=== PATIENT | female | born 2000 ===

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

== ENCOUNTER → 2019-02-05 | Outpatient (REF) | payer OTHER ==
[~2019-02-05] MED LIST changes: +LEVO-85 PO; +LOR5/325 PO
[2019-02-05 14:04] LABS: PLATELET COUNT, AUTOMATED 295 K/uL (150-450)
== END ==
LOC: ZZSTITCHES 13:55
PROVIDERS: ATTEND Physician Assistant
DX: R11.2 Nausea with vomiting, unspecified (principal); R10.9 Unspecified abdominal pain
CPT/HCPCS: 82040; 82247; 82310; 82374; 82435; 82565; 82947; 83690; 84075; 84132; 84155; 84295; 84450; 84460; 84520; 85025

== ENCOUNTER 2019-02-07 01:57 | Emergency (ER) | payer OTHER ==
[~2019-02-07 01:57] MED LIST changes: -LEVO-85 PO; -LOR5/325 PO
--- NOTE | 2019-02-07 02:12 | ER Report ---
History and Physical Time Seen By MD: 02:07 Hx. of Stated Complaint: PT HAS N/V/D FOR 1 WEEK. HPI/ROS CHIEF COMPLAINT: Nausea, vomiting and diarrhea with abdominal pain HISTORY OF PRESENT ILLNESS: This is a 18-year-old female. She has been having abdominal pain with associated diarrhea and nausea with vomiting for about a week now. Had been to the urgent care twice in the last several days. Laboratory evaluation shows that she was becoming a little dehydrated but otherwise labs were unremarkable. She was given some IV fluids and also was prescribed some Zofran, promethazine, dicyclomine to try and help with symptoms but these have been ineffective. Last visit with urgent care was 2 days ago. Since that time she has continued to have the diarrhea as well as the nausea and vomiting. She does not know of any sick contacts. She is a student at the [employer], in [facility]. 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 Diarrhea has been mainly watery, at least every few hours. She has been unable to keep much down with oral intake. No fevers noted. Abdominal pain is mainly in the epigastric area. No blood in the stool or melena noted. No blood in the emesis. She denies any shortness of breath. No chest pain. She is very weak from the ongoing symptoms. Currently on her menses. Allergies: Coded Allergies: No Known Drug Allergies (Unverified , 02/07/19) Home Meds Active Scripts Hydrocodone Bit/Acetaminophen (HYDROCODON-ACETAMINOPHEN 5-325) 1 Each Tablet, 1 EACH PO Q4H PRN for PAIN, #8 TAB 0 Refills Prov:DAWN GOMES MD 02/07/19 Levofloxacin 500 Mg Tab (LEVAQUIN 500 MG TAB) 500 Mg Tablet, 500 MG PO QDAY, #7 TAB 0 Refills Prov:DAWN GOMES MD 02/07/19 Norgestimate-Ethinyl Estradiol (SPRINTEC) 1 Each Tablet, 1 EACH PO DAILY, #1 PACK 12 Refills Prov:HEMANT HUBBARD DO 11/10/18 Reviewed Nurses Notes: Yes Hx Substance Use Disorder: No Hx Alcohol Use: No Constitutional Vital Sign - Last 24 Hours 02/07/19 02/07/19 02/07/19 02/07/19 02:00 02:01 02:12 02:27 Temp 98.7 Pulse 99 81 79 Resp 14 B/P (MAP) 120/81 (94) 120/81 Pulse Ox 93 93 95 O2 Delivery Room Air 02/07/19 02/07/19 02/07/19 02/07/19 02:42 02:57 03:12 03:15 Pulse 77 80 B/P (MAP) 111/75 (87) Pulse Ox 96 93 94 02/07/19 02/07/19 02/07/19 02/07/19 03:27 03:30 03:45 04:00 Pulse 83 81 76 83 B/P (MAP) 109/73 (85) 110/69 (83) Pulse Ox 92 93 90 91 02/07/19 02/07/19 02/07/19 02/07/19 04:15 04:30 04:45 05:00 Pulse 79 84 82 81 B/P (MAP) 105/76 (86) Pulse Ox 91 91 92 82 02/07/19 02/07/19 02/07/19 02/07/19 05:05 05:20 05:30 05:35 Pulse 81 84 80 B/P (MAP) 96/65 (75) Pulse Ox 92 92 89 02/07/19 02/07/19 02/07/19 02/07/19 05:50 06:00 06:05 06:10 Pulse 85 85 80 B/P (MAP) 93/62 (72) Pulse Ox 91 91 90 02/07/19 02/07/19 02/07/19 06:25 06:30 06:40 Pulse 81 83 B/P (MAP) 82/49 (60) Pulse Ox 90 89 Intake and Output 02/06/19 02/06/19 02/07/19 15:00 23:00 07:00 Intake Total 2000 ml Balance 2000 ml Physical Exam General Appearance: The patient is alert. Ill appearing. Eyes: Pupils are equal, round. No pallor, injection or icterus. ENT: Mucous membranes are a little dry. Otherwise normal oral mucosa. Posterior oropharynx is normal. Neck: Supple and non tender. Respiratory: Lungs are clear to auscultation. Cardiovascular: Regular rate and rhythm. No murmurs, gallops or rubs. Normal capillary refill. Gastrointestinal: Abdomen is soft, uncomfortable mainly in the periumbilical and epigastric area, somewhat over to the left side as well. Nondistended. Has some guarding but no rebound. Hyperactive bowel sounds. Slight left CVA area ten derness, none on the right. Neurological: Alert and oriented x3. No focal neurologic deficits. Skin: Warm and dry. Has some cold sores breaking out on her face but otherwise no rash. Musculoskeletal: Extremities are nontender. No tenderness in palpation of the cervical, thoracic and lumbar spine. DIFFERENTIAL DIAGNOSIS: After history and physical exam, differential diagnosis was considered for a patient with abdominal pain, about a week's time of nausea and vomiting with diarrhea, prior workup has been negative and medications tried have been ineffective. Would consider other infectious causes of diarrhea and abdominal pain such as colitis, inflammatory bowel disease as well. Would like to try and get stool samples for ova and parasites, culture, and C. difficile. We'll also need to try and get a urine sample. Medical Decision Making Data Points Result Diagram: 02/07/19 0203 02/07/19 0203 Laboratory Hematology Test 02/07/19 02:03 02/07/19 02:31 Red Blood Count 4.99 M/uL (4.17-5.56) Mean Corpuscular Volume 90.6 fL (80.0-96.0) Mean Corpuscular Hemoglobin 30.7 pg (26.0-33.0) Mean Corpuscular Hemoglobin Concent 33.8 g/dL (32.0-36.0) Red Cell Distribution Width 13.1 % (11.5-14.5) Mean Platelet Volume 8.1 fL (7.2-11.1) Neutrophils (%) (Auto) 72.8 % (39.4-72.5) Lymphocytes (%) (Auto) 13.7 % (17.6-49.6) Monocytes (%) (Auto) 11.4 % (4.1-12.4) Eosinophils (%) (Auto) 1.8 % (0.4-6.7) Basophils (%) (Auto) 0.3 % (0.3-1.4) Nucleated RBC Relative Count (auto) 0.1 /100WBC Neutrophils # (Auto) 6.4 K/uL (2.0-7.4) Lymphocytes # (Auto) 1.2 K/uL (1.3-3.6) Monocytes # (Auto) 1.0 K/uL (0.3-1.0) Eosinophils # (Auto) 0.2 K/uL (0.0-0.5) Basophils # (Auto) 0.0 K/uL (0.0-0.1) Nucleated RBC Absolute Count (auto) 0.01 K/uL Erythrocyte Sedimentation Rate 7 mm/HOUR (0-20) Sodium Level 138 mmol/L (137-145) Potassium Level 3.3 mmol/L (3.5-5.0) Chloride Level 103 mmol/L (98-107) Carbon Dioxide Level 25 mmol/L (22-31) Blood Urea Nitrogen 10 mg/dl (7-18) Creatinine 1.10 mg/dl (0.52-1.04) Glomerular Filtration Rate Calc > 60.0 Random Glucose 89 mg/dl (75-110) Calcium Level 9.0 mg/dl (8.4-10.2) Total Bilirubin 1.7 mg/dl (0.2-1.3) Aspartate Amino Transf (AST/SGOT) 27 U/L (0-35) Alanine Aminotransferase (ALT/SGPT) 24 U/L (0-56) Alkaline Phosphatase 74 U/L (0-126) Total Protein 8.1 g/dl (6.3-8.2) Albumin 4.4 g/dl (3.5-5.0) Amylase Level 75 U/L (0-110) Lipase 75 U/L (23-300) Human Chorionic Gonadotropin, Qual Negative (NEGATIVE) Helicobacter pylori IgG Antibody Negative (NEGATIVE) Urine Color Breana Urine Clarity Slightly-cloudy Urine pH 5.0 pH (4.8-9.5) Urine Specific Hawley 1.023 Urine Protein Negative mg/dL (NEGATIVE) Urine Glucose (UA) Negative mg/dL (NEGATIVE) Urine Ketones 20 mg/dL (NEGATIVE) Urine Blood Small (NEGATIVE) Urine Nitrite Negative (NEGATIVE) Urine Bilirubin Negative (NEGATIVE) Urine Urobilinogen 0.2 mg/dL (0.2-1.9) Urine Leukocyte Esterase Small (NEGATIVE) Urine RBC 1 /HPF (0-2/HPF) Urine WBC 12 /HPF (0-5/HPF) Urine Squamous Epithelial Cells Many /LPF (</=FEW) Urine Transitional Epithelial Cells Many /LPF (NONE-FEW) Urine Bacteria Few /HPF (NONE-FEW) Urine Mucus Few /HPF (NONE-FEW) Chemistry Test 02/07/19 02:03 02/07/19 02:31 White Blood Count 8.8 k/uL (4.5-11.0) Red Blood Count 4.99 M/uL (4.17-5.56) Hemoglobin 15.3 g/dL (12.0-16.0) Hematocrit 45.2 % (34.0-47.0) Mean Corpuscular Volume 90.6 fL (80.0-96.0) Mean Corpuscular Hemoglobin 30.7 pg (26.0-33.0) Mean Corpuscular Hemoglobin Concent 33.8 g/dL (32.0-36.0) Red Cell Distribution Width 13.1 % (11.5-14.5) Platelet Count 282 K/uL (150-450) Mean Platelet Volume 8.1 fL (7.2-11.1) Neutrophils (%) (Auto) 72.8 % (39.4-72.5) Lymphocytes (%) (Auto) 13.7 % (17.6-49.6) Monocytes (%) (Auto) 11.4 % (4.1-12.4) Eosinophils (%) (Auto) 1.8 % (0.4-6.7) Basophils (%) (Auto) 0.3 % (0.3-1.4) Nucleated RBC Relative Count (auto) 0.1 /100WBC Neutrophils # (Auto) 6.4 K/uL (2.0-7.4) Lymphocytes # (Auto) 1.2 K/uL (1.3-3.6) Monocytes # (Auto) 1.0 K/uL (0.3-1.0) Eosinophils # (Auto) 0.2 K/uL (0.0-0.5) Basophils # (Auto) 0.0 K/uL (0.0-0.1) Nucleated RBC Absolute Count (auto) 0.01 K/uL Erythrocyte Sedimentation Rate 7 mm/HOUR (0-20) Glomerular Filtration Rate Calc > 60.0 Calcium Level 9.0 mg/dl (8.4-10.2) Total Bilirubin 1.7 mg/dl (0.2-1.3) Aspartate Amino Transf (AST/SGOT) 27 U/L (0-35) Alanine Aminotransferase (ALT/SGPT) 24 U/L (0-56) Alkaline Phosphatase 74 U/L (0-126) Total Protein 8.1 g/dl (6.3-8.2) Albumin 4.4 g/dl (3.5-5.0) Amylase Level 75 U/L (0-110) Lipase 75 U/L (23-300) Human Chorionic Gonadotropin, Qual Negative (NEGATIVE) Helicobacter pylori IgG Antibody Negative (NEGATIVE) Urine Color Breana Urine Clarity Slightly-cloudy Urine pH 5.0 pH (4.8-9.5) Urine Specific Hawley 1.023 Urine Protein Negative mg/dL (NEGATIVE) Urine Glucose (UA) Negative mg/dL (NEGATIVE) Urine Ketones 20 mg/dL (NEGATIVE) Urine Blood Small (NEGATIVE) Urine Nitrite Negative (NEGATIVE) Urine Bilirubin Negative (NEGATIVE) Urine Urobilinogen 0.2 mg/dL (0.2-1.9) Urine Leukocyte Esterase Small (NEGATIVE) Urine RBC 1 /HPF (0-2/HPF) Urine WBC 12 /HPF (0-5/HPF) Urine Squamous Epithelial Cells Many /LPF (</=FEW) Urine Transitional Epithelial Cells Many /LPF (NONE-FEW) Urine Bacteria Few /HPF (NONE-FEW) Urine Mucus Few /HPF (NONE-FEW) Urinalysis Test 02/07/19 02:31 Urine Color Breana Urine Clarity Slightly-cloudy Urine pH 5.0 pH (4.8-9.5) Urine Specific Hawley 1.023 Urine Protein Negative mg/dL (NEGATIVE) Urine Glucose (UA) Negative mg/dL (NEGATIVE) Urine Ketones 20 mg/dL (NEGATIVE) Urine Blood Small (NEGATIVE) Urine Nitrite Negative (NEGATIVE) Urine Bilirubin Negative (NEGATIVE) Urine Urobilinogen 0.2 mg/dL (0.2-1.9) Urine Leukocyte Esterase Small (NEGATIVE) Urine RBC 1 /HPF (0-2/HPF) Urine WBC 12 /HPF (0-5/HPF) Urine Squamous Epithelial Cells Many /LPF (</=FEW) Urine Transitional Epithelial Cells Many /LPF (NONE-FEW) Urine Bacteria Few /HPF (NONE-FEW) Urine Mucus Few /HPF (NONE-FEW) EKG/Imaging Imaging CT of the abdomen and pelvis with contrast: Indication: Epigastric abdominal pain, nausea, and vomiting for one week. Technique: Helical CT was performed through the abdomen and pelvis following IV contrast enhancement with 75 cc of Isovue-370. Multiplanar reconstructions are reviewed. One of the following dose optimization techniques was utilized in the performance of this exam: Automated exposure control; adjustment of the mA and/or kV according to the patient's size; or use of an iterative reconstruction technique. Specific details can be referenced in the facility's radiology CT exam operational policy. Comparison: None available. Lower lung estrella: No parenchymal or pleural abnormality is identified. Liver: Normal in size, shape, and density. The venous structures appear homogeneous and unremarkable. Gallbladder/biliary tree: The gallbladder appears relatively contracted, but otherwise unremarkable. The bile ducts are not dilated. Pancreas: Normal in size, shape, and density. Spleen: Normal in size, shape, and density. Adrenal glands: Within normal limits. Kidneys/urinary bladder: The kidneys are normal in size, shape, and density. There are no signs of urinary tract calculus or obstruction. The bladder is unremarkable, as visualized. Intestinal structures: Unremarkable, as visualized. There are no signs of obstruction or focal inflammatory changes. The appendix appears normal. Pelvis: The uterus and adnexal structures are unremarkable, as visualized. There is minimal free fluid in the cul-de-sac. No circumscribed fluid collection is identified. Aorta and vascular structures: Within normal limits. Ascites or fluid collections: Minimal free fluid in the cul-de-sac. Otherwise unremarkable. Skeletal structures: Well mineralized and intact. No evidence of acute skeletal deformity. Impression: No acute process is identified in the abdomen or pelvis. Report Dictated By: Venkat Martinez MD at 02/07/2019 3:27 AM EXAMINATION: LIMITED ABDOMINAL ULTRASOUND DATE: 02/07/2019 4:06 AM INDICATION: Mid to lower abdominal pain, nausea and vomiting for a week. TECHNIQUE: Mcnally scale, color and pulsed Doppler ultrasound images of the right upper quadrant were obtained. COMPARISON: Same-day CT abdomen and pelvis. FINDINGS: Pancreas: The pancreas is grossly normal. Aorta and IVC: The imaged abdominal aorta and IVC are patent. Liver: The liver shows normal shape, parenchymal echogenicity and echotexture. The right hepatic lobe measures 14.5 cm craniocaudal, which is within normal limits. There is no definite focal lesion in the liver. The main portal vein is patent with hepatopedal flow. Bile ducts: The intrahepatic bile ducts are not dilated. The common bile duct measures 2 mm in diameter, which is normal. Gallbladder: The gall bladder is decompressed and otherwise unremarkable with no cholelithiasis, wall thickening, pericholecystic fluid, or sonographic Worthington's sign. Kidney: The right kidney measures 11.1 x 3.7 x 4.5 cm. The parenchymal echogenicity and thickness appear within normal range. No focal lesion is demonstrated. No hydronephrosis. Normal low resistance arterial waveform in the right kidney. No ascites. IMPRESSION: Normal examination. Report Dictated By: Oseas Barbosa MD at 02/07/2019 5:25 AM ED Course/Re-evaluation Clinical Indication for ER IV: Hydration, IV Access ED Course Patient received a liter of normal saline and some Zofran. Then was given morphine 2mg IV. Was able to rest. Able to provide a urine sample after IV fluids, but unable to provide stool sample. Urine with changes that appear to be urinary tract infection, Normal CT scan and ultrasound. AFter these were done, spoke with the patient and her mother regarding results. Would like to get stool sample, then start Levaquin 7 day course and follow-up with Gastroenterolgy. See instructions below. Decision to Disposition Date: February 07, 2019 Decision to Disposition Time: 06:02 Depart Departure Latest Vital Signs Vital Signs Date Time Temp Pulse Resp B/P (MAP) Pulse Ox O2 Delivery O2 Flow Rate FiO2 02/07/19 06:40 83 89 02/07/19 06:30 82/49 (60) 02/07/19 02:01 98.7 14 Room Air Impression: Primary Impression: Abdominal pain Additional Impressions: Diarrhea Nausea & vomiting Urinary tract infection Condition: Improved Disposition: HOME OR SELF-CARE New Scripts Hydrocodone Bit/Acetaminophen (HYDROCODON-ACETAMINOPHEN 5-325) 1 Each Tablet 1 EACH PO Q4H PRN for PAIN, #8 TAB 0 Refills Prov: DAWN GOMES MD 02/07/19 Levofloxacin 500 Mg Tab (LEVAQUIN 500 MG TAB) 500 Mg Tablet 500 MG PO QDAY, #7 TAB 0 Refills Prov: DAWN GOMES MD 02/07/19 Patient Instructions: Acute Diarrhea (ED), Acute Nausea and Vomiting (ED), Urinary Tract Infection in Women (ED) Additional Instructions: We did not find a specific cause for your ongoing abdominal pain, nausea/vomiting, and diarrhea tonight. Blood work, CT scan and Ultrasound were all negative. The only abnormality that we saw were changes in the urine that could represent a urinary tract infection. We still need to get stool to do culture and other studies. We are also going to have a culture done on the urine as well. Please bring in a stool sample so this can be done. Once the stool sample has been obtained, we would like to have you start the antibiotic Levaquin 500mg once a day for 7 days. Keep taking your Phenergan as needed for nausea and vomiting. Do not take Immodium. We will be giving you some pain medicine called Lortab to help with abdominal pain and you can take one of these every 4 hours as needed for pain. If continuing to have symptoms, you can return to the ER as needed for further evaluation/treatment. We recommend follow-up wtih a GI specialist (gastroenterology) for further evaluation. Problem Qualifiers Primary Impression: Abdominal pain Abdominal location: upper abdomen, unspecified Qualified Codes: R10.10 - Upper abdominal pain, unspecified Additional Impressions: Diarrhea Diarrhea type: unspecified type Qualified Codes: R19.7 - Diarrhea, unspecified Nausea & vomiting Vomiting type: unspecified Vomiting Intractability: non-intractable Qualified Codes: R11.2 - Nausea with vomiting, unspecified Urinary tract infection Urinary tract infection type: site unspecified Hematuria presence: without hematuria Qualified Codes: N39.0 - Urinary tract infection, site not specified DAWN GOMES MD February 07, 2019 02:12
[2019-02-07] MEDS ORDERED: NS(*) 0.9% 1000 ML BAG 1,000 ML IV ONE ×2 (02:30→03:25)
[2019-02-07] MEDS ORDERED: PANTOPRAZOLE SOD 40 MG IV VIAL IVP ONE (02:30)
[2019-02-07] MEDS ORDERED: ONDANSETRON 4 MG/2 ML VIAL IVP ONE (02:30)
[2019-02-07 02:48] LABS: PLATELET COUNT, AUTOMATED 282 K/uL (150-450)
[2019-02-07] MEDS ORDERED: IOPAMIDOL 76% 150 ML INFUS BTL 150 ML ONE (02:48)
[2019-02-07] MEDS ORDERED: MORPHINE 2 MG/ML SYR IVP ONE (02:55)
--- NOTE | 2019-02-07 03:38 | RADIOLOGY IMAGING REPORT ---
[place] [facility] [place] Avelina Jimenez : 2000 MR: [id number] V: [id number] EXAM DATE: ORDERING PHYSICIAN: DAWN GOMES TECHNOLOGIST: Location: [facility] - [place] Patient: Avelina Jimenez : 2000 Visit/Account:[id number] Date of Sevice: 02/07/2019 CT of the abdomen and pelvis with contrast: Indication: Epigastric abdominal pain, nausea, and vomiting for one week. Technique: Helical CT was performed through the abdomen and pelvis following IV contrast enhancement with 75 cc of Isovue-370. Multiplanar reconstructions are reviewed. One of the following dose optimization techniques was utilized in the performance of this exam: Autom ated exposure control; adjustment of the mA and/or kV according to the patient's size; or use of an i terative reconstruction technique. Specific details can be referenced in the facility's radiology CT exam operational policy. Comparison: None available. Lower lung estrella: No parenchymal or pleural abnormality is identified. Liver: Normal in size, shape, and density. The venous structures appear homogeneous and unremarkable. Gallbladder/biliary tree: The gallbladder appears relatively contracted, but otherwise unremarkable. The bile ducts are not dilated. Pancreas: Normal in size, shape, and density. Spleen: Normal in size, shape, and density. Adrenal glands: Within normal limits. Kidneys/urinary bladder: The kidneys are normal in size, shape, and density. There are no signs of urinary tract calculus or obstruction. The bladder is unremarkable, as visualized. Intestinal structures: Unremarkable, as visualized. There are no signs of obstruction or focal inflam matory changes. The appendix appears normal. Pelvis: The uterus and adnexal structures are unremarkable, as visualized. There is minimal free flui d in the cul-de-sac. No circumscribed fluid collection is identified. Aorta and vascular structures: Within normal limits. Ascites or fluid collections: Minimal free fluid in the cul-de-sac. Otherwise unremarkable. Skeletal structures: Well mineralized and intact. No evidence of acute skeletal deformity. Impression: No acute process is identified in the abdomen or pelvis. Report Dictated By: Venkat Martinez MD at 02/07/2019 3:27 AM Report E-Signed By: Venkat Martinez MD at 02/07/2019 3:35 AM WSN:[id number]
--- NOTE | 2019-02-07 05:36 | RADIOLOGY IMAGING REPORT ---
FACILITY: [facility] PATIENT NAME: Avelina Jimenez : 2000 MR: [id number] V: [id number] EXAM DATE: ORDERING PHYSICIAN: DAWN GOMES TECHNOLOGIST: Location: [facility] [place] Patient: Avelina Jimenez : 2000 Visit/Account:[id number] Date of Sevice: 02/07/2019 EXAMINATION: LIMITED ABDOMINAL ULTRASOUND DATE: 02/07/2019 4:06 AM INDICATION: Mid to lower abdominal pain, nausea and vomiting for a week. TECHNIQUE: Mcnally scale, color and pulsed Doppler ultrasound images of the right upper quadrant were ob tained. COMPARISON: Same-day CT abdomen and pelvis. FINDINGS: Pancreas: The pancreas is grossly normal. Aorta and IVC: The imaged abdominal aorta and IVC are patent. Liver: The liver shows normal shape, parenchymal echogenicity and echotexture. The right hepatic lobe measures 14.5 cm craniocaudal, which is within normal limits. There is no definite focal lesion in t he liver. The main portal vein is patent with hepatopedal flow. Bile ducts: The intrahepatic bile ducts are not dilated. The common bile duct measures 2 mm in diamet er, which is normal. Gallbladder: The gall bladder is decompressed and otherwise unremarkable with no cholelithiasis, wall thickening, pericholecystic fluid, or sonographic Worthington's sign. Kidney: The right kidney measures 11.1 x 3.7 x 4.5 cm. The parenchymal echogenicity and thickness maritza ear within normal range. No focal lesion is demonstrated. No hydronephrosis. Normal low resistance a rterial waveform in the right kidney. No ascites. IMPRESSION: Normal examination. Report Dictated By: Oseas Barbosa MD at 02/07/2019 5:25 AM Report E-Signed By: Oseas Barbosa MD at 02/07/2019 5:32 AM WSN:[id number]
[2019-02-07] MEDS ORDERED: LEVO-85 PO (06:04)
[2019-02-07] MEDS ORDERED: LOR5/325 PO (06:04)
[2019-02-07] MEDS ORDERED: ACET/HYDROC 5/325MG TH ER ONLY 2 TAB/BOTTLE PO ONE (06:05)
[2019-02-07 06:30] VITALS: BP 82/49
== END 2019-02-07 06:51 | disposition home or self-care (01) ==
LOC: ER 02:10
DX: N39.0 Urinary tract infection, site not specified (principal); R10.10 Upper abdominal pain, unspecified; R19.7 Diarrhea, unspecified; R11.2 Nausea with vomiting, unspecified
CPT/HCPCS: 74177; 76705; 81001; 82150; 83690; 84703; 85025; 85651; 86677; 96361; 96374; 96375; 99284; C9113; J2270; J2405; J7030; Q9967; 82040; 82247; 82310; 82374; 82435; 82565; 82947; 84075; 84132; 84155; 84295; 84450; 84460; 84520